=== PATIENT | male | born 1985 | race African-American/Black ===

== ENCOUNTER 2018-09-19 08:19 | Emergency (ER) | payer OTHER ==
[~2018-09-19] VITALS: Ht 177.8 cm; Wt 90.7 kg
[2018-09-19 08:34] VITALS: Ht 177.8 cm; Wt 90.7 kg
[2018-09-19 10:21] LABS: BASOPHIL % 0.1 % (0-2); PLATELET COUNT 284 x10^3mcL (130-400); RED CELL DISTRIBUTION WIDTH 13.5 % (11.5-14.5)
[2018-09-19 10:22] LABS: CALCIUM 9.3 mg/dL (8.5-10.1); CARBON DIOXIDE 26.8 mmol/L (21-32); CHLORIDE SERUM 101 mmol/L (98-107); CREATININE SERUM 1.3 mg/dL (0.7-1.3); GFR1 > 60 mL/min; GLUCOSE SERUM 121 mg/dL (74-106); POTASSIUM SERUM 3.8 mmol/L (3.5-5.1); SODIUM SERUM 140 mmol/L (136-145)
[2018-09-19 10:26] LABS: ALBUMIN 4.3 g/dL (3.4-5.0); ALKALINE PHOSPHATASE 66 U/L (46-116); ALT/SGPT 51 U/L (16-63); AMYLASE 41 U/L (25-115); AST/SGOT 92 U/L (15-37); BILIRUBIN TOTAL 1.06 mg/dL (0.20-1.00); LIPASE 86 IU/L (73-393)
[2018-09-19 10:29] LABS: TOTAL PROTEIN, SERUM 8.4 g/dL (6.4-8.2)
[2018-09-19 12:20] LABS: microscopic required? NO
[2018-09-19 12:37] LABS: UA SPECIFIC GRAVITY 1.025 (1.005-1.035); urine erythrocyte NEGATIVE (NEGATIVE)
[2018-09-19 13:02] LABS: AMPHETAMINE QUAL UR NONE DETECTED (See below)
[2018-09-19 13:07] VITALS: BP 108/64
== END 2018-09-19 13:07 | disposition home or self-care (01) ==
LOC: ED 08:19
PROVIDERS: Emergency Medicine
DX: R11.10 Vomiting, unspecified (principal); R19.7 Diarrhea, unspecified; R10.84 Generalized abdominal pain
CPT/HCPCS: J0500; J2405; J3490; J7030